=== PATIENT | male | born 1985 | race Caucasian/White ===

== ENCOUNTER 2017-04-08 12:24 | Emergency (ER) | payer MEDICAID, OTHER ==
[2017-04-08] MEDS ORDERED: Ketorolac 60 MG/2 ML SDV IM ONE (13:11)
--- NOTE | 2017-04-08 13:15 | EDM.PDOC ---
ED HPI GENERAL MEDICAL PROBLEM - General Chief Complaint: General Stated Complaint: BAD TOOTHACHE Time Seen by Provider: 04/08/17 12:56 Source of Information: Reports: Patient, RN Notes Reviewed History Limitations: Reports: No Limitations - History of Present Illness INITIAL COMMENTS - FREE TEXT/NARRATIVE: 32-year-old gentleman presents emergency department today with 2 complaints first is dental pain has been going on for the last couple days it is predominantly left side upper tooth he denies any fevers nausea vomiting, the other issue is bilateral testicular swelling and discomfort has been going on for about a week he has been initially evaluated in primary care recommended ultrasound for that he is not followed up tooth pain Pain Score (Numeric/FACES): 4 - Related Data Allergies Allergy/AdvReac Type Severity Reaction Status Date / Time No Known Allergies Allergy Verified 04/08/17 12:40 Home Meds: Home Meds Ibuprofen [Motrin] 1 tab PO Q8H PRN 04/08/17 [History] Levofloxacin [Levaquin] 1 tab PO DAILY 04/08/17 [History] Past Medical History Genitourinary History: Reports: Other (See Below) Other Genitourinary History: TESTICLE SWELLING BAG OF WORMS Musculoskeletal History: Reports: Fracture - Infectious Disease History Infectious Disease History: Reports: Chicken Pox - Past Surgical History Musculoskeletal Surgical History: Reports: Other (See Below) Other Musculoskeletal Surgeries/Procedures:: LEFT COLLAR BONE PLATE AND SCREWS Social & Family History - Tobacco Use Smoking Status *Q: Current Every Day Smoker Years of Tobacco use: 15 Packs/Tins Daily: 0.5 Second Hand Smoke Exposure: Yes - Caffeine Use Caffeine Use: Reports: Coffee - Recreational Drug Use Recreational Drug Use: No ED ROS GENERAL - Review of Systems Review Of Systems: See Below Constitutional: Reports: No Symptoms HEENT: Reports: Dental Pain Respiratory: Reports: No Symptoms Cardiovascular: Reports: No Symptoms GI/Abdominal: Reports: No Symptoms : Reports: Pain (Testicular) Skin: Reports: No Symptoms Neurological: Reports: No Symptoms ED EXAM, GENERAL - Physical Exam Exam: See Below Exam Limited By: No Limitations General Appearance: Alert, WD/WN, No Apparent Distress Nose: Normal Inspection, Normal Mucosa, No Blood Throat/Mouth: Normal Inspection, Normal Lips, Normal Gums, Normal Oropharynx, Normal Voice, No Airway Compromise, Other (Dental caries tooth #16) Head: Atraumatic, Normocephalic Neck: Normal Inspection, Supple, Non-Tender, Full Range of Motion Respiratory/Chest: No Respiratory Distress, Lungs Clear, Normal Breath Sounds, No Accessory Muscle Use, Chest Non-Tender Cardiovascular: Regular Rate, Rhythm, No Murmur GI/Abdominal: Soft, Non-Tender (Male) Exam: No Hernia, Normal Inspection, Circumcised, Testicular Tenderness (L), Testicular Tenderness (R). No: Suprapubic Fullness, Testicular Mass, Urethral Discharge Course - Vital Signs Last Recorded V/S: Last Vital Signs Temp 95.2 F L 04/08/17 12:50 Pulse 59 L 04/08/17 14:02 Resp 16 04/08/17 14:02 BP 132/80 04/08/17 14:02 Pulse Ox 96 04/08/17 14:02 - Orders/Labs/Meds Labs: Laboratory Tests 04/08/17 04/08/17 Range/Units 13:11 13:11 WBC 8.5 (4.5-11.0) K/uL RBC 4.81 (4.30-5.90) M/uL Hgb 15.1 H (12.0-15.0) g/dL Hct 43.6 (40.0-54.0) % MCV 91 (80-98) fL MCH 31 (27-31) pg MCHC 35 (32-36) % Plt Count 234 (150-400) K/uL Neut % (Auto) 64 (36-66) % Lymph % (Auto) 26 (24-44) % [place] % (Auto) 7 H (2-6) % Eos % (Auto) 2 (2-4) % Baso % (Auto) 1 (0-1) % Sodium 142 (140-148) mmol/L Potassium 4.3 (3.6-5.2) mmol/L Chloride 105 (100-108) mmol/L Carbon Dioxide 28 (21-32) mmol/L Anion Gap 9.1 (5.0-14.0) mmol/L BUN 17 (7-18) mg/dL Creatinine 1.1 (0.8-1.3) mg/dL Est Cr Clr Drug Dosing 100.78 mL/min Estimated GFR (MDRD) > 60 (>60) Glucose 96 (74-106) mg/dL Calcium 9.1 (8.5-10.1) mg/dL Meds: Medications Discontinued Medications Generic Name Dose Route Start Last Admin Trade Name Alexandra PRN Reason Stop Dose Admin Ketorolac Tromethamine 60 mg 04/08/17 13:11 04/08/17 13:23 Toradol IM 04/08/17 13:12 60 mg ONETIME ONE Administration Departure - Departure Time of Disposition: 14:56 Disposition: Home, Self-Care 01 Condition: Good Clinical Impression: Testicle pain - Discharge Information Referrals: Jasvir Wise Sr, MD [Primary Care Provider] - Forms: ED Department Discharge Additional Instructions: Use hydrocodone as needed for pain control, recommend follow-up ultrasound in 6 months, please report to the dental clinic at 8:15 on Tuesday for further evaluation, call return to the emergency department with worsening of symptoms - Assessment/Plan Plan: Assessment Acuity = acute Site and laterality = bilateral testicular pain, dental pain tooth #16 Etiology = unclear etiology for both Manifestations = none Location of injury = Home Lab values = CBC, BMP unremarkable ultrasound shows no acute process there is a small cyst in the left testicle of unclear etiology recommend follow-up ultrasound in 6 months Plan Dental referral was set up for Tuesday at 8:15, hydrocodone 5/325 one tablet by mouth 3 times a day when necessary total #10 provided for pain control, recommend follow-up with primary care for repeat ultrasound in 6 months Patient was in agreement with the plan all questions were answered, they were instructed to return to the emergency department or call for worsening symptoms. This note was dictated using [employer] voice recognition software please call with any questions.
--- NOTE | 2017-04-08 14:35 | US ---
Testicular ultrasound. Findings: Right testicle 4.1 x 2.1 x 2.8 cm. Normal echotexture. The right epididymis is within claudine l limits. Left testicle 4.5 x 2.4 x 2.4 cm. Probable tiny cleft within the left testicle as there is a tiny hypoechogenicity within it measuring only a few millimeters. Left epididymis contains a tiny c yst otherwise within normal limits. Impression: 1. No definitive abnormality there is likely a tiny cleft only within the left testicle but would rec ommend follow-up in 6 months with ultrasound for stability.
== END 2017-04-08 15:05 | disposition home or self-care (01) ==
LOC: JP.ED 12:24
DX: N50.812 Left testicular pain (principal); N50.811 Right testicular pain; K02.9 Dental caries, unspecified; F17.210 Nicotine dependence, cigarettes, uncomplicated; Z79.899 Other long term (current) drug therapy
CPT/HCPCS: 36415; 76870; 80048; 85025; 93976; 96372; 99284; J1885

== ENCOUNTER 2019-10-12 14:16 | Emergency (ER) | payer BC, MEDICAID ==
[2019-10-12] MEDS ORDERED: Lidocaine 1% with EPINEPHrine 1:100,000 50 ML MDV SUBCUT SCH (15:00)
[2019-10-12] MEDS ORDERED: Bacitracin Oint 1 GM U/D Packet TOP ONE (15:04)
[2019-10-12] MEDS ORDERED: Diphtheria,Pertussis(Acell),Tetanus Vaccine 0.5 ML SDV IM ONE (15:05)
--- NOTE | 2019-10-12 15:09 | EDM.PDOC ---
ED HPI GENERAL MEDICAL PROBLEM - General Chief Complaint: Laceration Stated Complaint: HOOK IN L INDEX FINGER Time Seen by Provider: 10/12/19 14:50 Source of Information: Reports: Patient, Old Records, RN History Limitations: Reports: No Limitations - History of Present Illness INITIAL COMMENTS - FREE TEXT/NARRATIVE: 34 yo male presents with a fishhook in his R index finger. Here for evaluation. Tetanus unknown. Onset: Today Onset Date: 10/12/19 Duration: Minutes: Location: Reports: Upper Extremity, Left Quality: Reports: Sharp, Stabbing Severity: Moderate Improves with: Reports: Rest Worsens with: Reports: Movement (of hook) Context: Reports: Trauma Associated Symptoms: Reports: No Other Symptoms Treatments EVALUATION ADVISOR: Reports: Other (see below) (none) Left Finger-Index Pain Score (Numeric/FACES): 4 - Related Data Allergies Allergy/AdvReac Type Severity Reaction Status Date / Time No Known Allergies Allergy Verified 10/12/19 14:36 Home Meds: Home Meds Buprenorphine HCl/Naloxone HCl [Suboxone 4 mg-1 mg Sl Film] 2 cap SL DAILY 10/11 [History] Methylphenidate HCl [Ritalin] 10 mg PO DAILY 10/12/19 [History] Past Medical History Genitourinary History: Reports: Other (See Below) Other Genitourinary History: TESTICLE SWELLING BAG OF WORMS Musculoskeletal History: Reports: Fracture Psychiatric History: Reports: ADD, Learning Disability - Infectious Disease History Infectious Disease History: Reports: Chicken Pox - Past Surgical History Musculoskeletal Surgical History: Reports: Other (See Below) Other Musculoskeletal Surgeries/Procedures:: LEFT COLLAR BONE PLATE AND SCREWS Social & Family History - Tobacco Use Smoking Status *Q: Current Every Day Smoker Years of Tobacco use: 18 Packs/Tins Daily: 0.2 - Caffeine Use Caffeine Use: Reports: Coffee - Recreational Drug Use Recreational Drug Use: No ED ROS GENERAL - Review of Systems Review Of Systems: See Below Constitutional: Reports: No Symptoms Skin: Reports: Wound (puncture of L index finger) Neurological: Reports: No Symptoms ED EXAM, SKIN/RASH Exam: See Below Exam Limited By: No Limitations General Appearance: Alert, WD/WN, No Apparent Distress Extremities: No: Normal Inspection, Normal Range of Motion, Non-Tender, No Pedal Edema, Pedal Edema, Increased Warmth, Redness, Other (hook in L index finger) Neurological: Alert, Oriented, CN II-XII Intact, Normal Cognition, No Motor/ Sensory Deficits Psychiatric: Normal Affect, Normal Mood Skin: Warm, Dry, Normal Color, No Rash, Wound/Incision (puncture L index) Location, Skin: Upper Extremity, Left Associated features: Tenderness. No: Warmth, Induration, Lymphangitis ED SKIN PROCEDURES - Foreign Body Removal Performing Doctor:: Milan José Anesthesia Type: Local (1% lido with epi 2.5 ml locally) Complications:: No Comments:: Hook removed after katrina was covered with an 18 g needle and backed out. Course - Vital Signs Last Recorded V/S: Last Vital Signs Temp 35.3 C L 10/12/19 14:42 Pulse 63 10/12/19 14:42 Resp 16 10/12/19 14:42 BP 120/79 10/12/19 14:42 Pulse Ox 100 10/12/19 14:42 - Orders/Labs/Meds Orders: Active Orders 24 hr Category Date Time Status Bacitracin [Bacitracin Oint 1 GM] Med 10/12/19 15:04 Once 1 dose TOP ONETIME ONE Lidocaine 1% w/EPINEPHrine [Xylocaine 1% with Med 10/12/19 15:00 Ordered EPINEPHrine 1:100,000] 3 ml SUBCUT STAT Medication Orders Lidocaine/Epinephrine (Xylocaine 1% With Epinephrine 1:100,000) 3 ml SUBCUT STAT LANCE Meds: Medications Generic Name Dose Route Start Last Admin Trade Name Freq PRN Reason Stop Dose Admin Lidocaine/Epinephrine 3 ml 10/12/19 15:00 Xylocaine 1% With Epinephrine 1:100,000 SUBCUT STAT LANCE Departure - Departure Time of Disposition: 15:10 Disposition: Home, Self-Care 01 Condition: Good Clinical Impression: Fish hook injury of finger of left hand Qualifiers: Encounter type: initial encounter Qualified Code(s): S69.92XA - Unspecified injury of left wrist, hand and finger(s), initial encounter - Discharge Information *PRESCRIPTION DRUG MONITORING PROGRAM REVIEWED*: No *COPY OF PRESCRIPTION DRUG MONITORING REPORT IN PATIENT YANIRA: No Instructions: Puncture Wound, [id number] Referrals: PCP,None [Primary Care Provider] - Additional Instructions: Clean wound twice daily with soap and water. Dry. Apply antibiotic ointment and a new dressing. Recheck for signs of infection. Acetaminophen for pain relief. Sepsis Event Note - Evaluation Sepsis Screening Result: No Definite Risk - Focused Exam Vital Signs: Vital Signs Temp Pulse Resp BP Pulse Ox 10/12/19 14:42 35.3 C L 63 16 120/79 100 10/12/19 14:37 35.3 C L 63 16 120/79 100 Date Exam was Performed: 10/12/19 Time Exam was Performed: 15:04 - My Orders Last 24 Hours: My Active Orders 10/12/19 15:00 Lidocaine 1% w/EPINEPHrine [Xylocaine 1% with EPINEPHrine 1:100,000] 3 ml SUBCUT STAT 10/12/19 15:04 Bacitracin [Bacitracin Oint 1 GM] 1 dose TOP ONETIME ONE - Assessment/Plan Last 24 Hours: My Active Orders 10/12/19 15:00 Lidocaine 1% w/EPINEPHrine [Xylocaine 1% with EPINEPHrine 1:100,000] 3 ml SUBCUT STAT 10/12/19 15:04 Bacitracin [Bacitracin Oint 1 GM] 1 dose TOP ONETIME ONE
== END 2019-10-12 15:20 | disposition home or self-care (01) ==
LOC: JP.ED 14:16
DX: S60.450A Superficial foreign body of right index finger, initial encounter (principal); Z23 Encounter for immunization; F17.210 Nicotine dependence, cigarettes, uncomplicated; Z79.899 Other long term (current) drug therapy
CPT/HCPCS: 64450; 90471; 90715; 99283-25

== ENCOUNTER 2021-02-08 12:31 | Emergency (ER) | payer BC ==
--- NOTE | 2021-02-08 13:21 | EDM.PDOC ---
ED HPI GENERAL MEDICAL PROBLEM - General Chief Complaint: Abdominal Pain Stated Complaint: SWOLLEN GROIN Time Seen by Provider: 02/08/21 13:00 Source of Information: Reports: Patient History Limitations: Reports: No Limitations - History of Present Illness INITIAL COMMENTS - FREE TEXT/NARRATIVE: 35-year-old male with groin adenopathy that he has noticed for the past several weeks. He was checked at the clinic, a fairly thorough work-up was done and the only thing that was abnormal was his pH of his urine was high. He has a CT of the abdomen and pelvis planned through the clinic coming up but he does not know when. Over the past day or 2 has been continually feeling his lymph nodes and is so worried that he came in today to be checked. He really has no pain, no fever, he has had a 10 pound weight loss over the past year but no nausea or vomiting, bowel changes, rashes or testicular problems. Onset: Gradual Duration: Week(s): (He has noticed the lymph nodes for the past few weeks) Location: Reports: Other (Bilateral groin) Associated Symptoms: Reports: Other (Significant anxiety about health) - Related Data Allergies Allergy/AdvReac Type Severity Reaction Status Date / Time No Known Allergies Allergy Verified 02/08/21 12:49 Home Meds: Home Meds Buprenorphine HCl/Naloxone HCl [Suboxone 4 mg-1 mg Sl Film] 2 cap SL DAILY 10/12/19 [History] Methylphenidate HCl [Ritalin] 10 mg PO DAILY 10/12/19 [History] Ibuprofen 1 tab PO BID 02/08/21 [History] Nicotine Polacrilex [Nicotine Gum] 2 tab CHEW Q4HR 02/08/21 [History] Past Medical History Genitourinary History: Reports: Other (See Below) Other Genitourinary History: TESTICLE SWELLING BAG OF WORMS Musculoskeletal History: Reports: Fracture Psychiatric History: Reports: ADD, Learning Disability - Infectious Disease History Infectious Disease History: Reports: Chicken Pox - Past Surgical History Musculoskeletal Surgical History: Reports: Other (See Below) Other Musculoskeletal Surgeries/Procedures:: LEFT COLLAR BONE PLATE AND SCREWS Social & Family History - Tobacco Use Tobacco Use Status *Q: Former Tobacco User Used Tobacco, but Quit: Yes Month/Year Tobacco Last Used: 2020 - Caffeine Use Caffeine Use: Reports: Coffee ED ROS GENERAL - Review of Systems Review Of Systems: See Below Constitutional: Denies: Fever, Chills, Malaise HEENT: Reports: No Symptoms Respiratory: Reports: No Symptoms Cardiovascular: Reports: No Symptoms GI/Abdominal: Reports: No Symptoms Musculoskeletal: Reports: No Symptoms Skin: Reports: No Symptoms. Denies: Rash Neurological: Reports: No Symptoms Psychiatric: Reports: Anxiety Hematologic/Lymphatic: Reports: Other (Palpable lymph nodes in both groins) ED EXAM, GENERAL - Physical Exam Exam: See Below Exam Limited By: No Limitations General Appearance: Alert, Anxious Eye Exam: Bilateral Eye: Normal Inspection Head: Atraumatic Neck: No: Lymphadenopathy (R), Lymphadenopathy (L) Respiratory/Chest: No Respiratory Distress GI/Abdominal: Soft, Non-Tender (Male) Exam: No Hernia, Other (The inguinal lymphatic chains are palpable but small, freely mobile and nontender). No: Suprapubic Fullness, Testicular Mass, Testicular Tenderness (L), Testicular Tenderness (R) Extremities: Normal Inspection Neurological: Alert, Oriented Psychiatric: Anxious Skin Exam: Warm, Dry Course - Vital Signs Last Recorded V/S: Last Vital Signs Temp 97.5 F 02/08/21 12:58 Pulse 94 02/08/21 12:58 Resp 14 02/08/21 12:58 BP 125/73 02/08/21 12:58 Pulse Ox 98 02/08/21 12:58 - Re-Assessments/Exams Free Text/Narrative Re-Assessment/Exam: 02/08/21 13:50 Reviewed the labs with the patient, his CBC and differential were normal. I really do not think the lymph nodes are significantly enlarged considering that he has been palpating them continually for 2 straight weeks. No need to do the CAT scan today, he can return anytime if worsening such as pain or more swelling. Departure - Departure Time of Disposition: 13:40 Disposition: Home, Self-Care 01 Clinical Impression: Lymphadenopathy, inguinal - Discharge Information Instructions: Lymphadenopathy Referrals: Truman Yoder NP [Primary Care Provider] - Forms: ED Department Discharge Care Plan Goals: Recheck with your scan as planned, return tomorrow if worsening or concerns. Sepsis Event Note (ED) - Focused Exam Vital Signs: Vital Signs Temp Pulse Resp BP Pulse Ox 02/08/21 12:58 97.5 F 94 14 125/73 98
== END 2021-02-08 13:40 | disposition home or self-care (01) ==
LOC: JP.ED 12:31
DX: R59.0 Localized enlarged lymph nodes (principal); Z87.891 Personal history of nicotine dependence
CPT/HCPCS: 99283

== ENCOUNTER 2022-10-10 11:01 | Emergency (ER) | payer BC ==
[2022-10-10 12:25] LABS: APPEARANCE,URINE SLIGHTLY CLOUDY (CLEAR); BILIRUBIN,URINE NEGATIVE (NEGATIVE); COLOR,URINE YELLOW (YELLOW); GLUCOSE,URINE NEGATIVE (NEGATIVE); KETONES,URINE NEGATIVE (NEGATIVE); LEUKOCYTE ESTERASE,URINE NEGATIVE (NEGATIVE); NITRITE,URINE NEGATIVE (NEGATIVE); OCCULT BLOOD,URINE TRACE-INTACT (NEGATIVE); PROTEIN,URINE TRACE mg/dL (NEGATIVE)
[2022-10-10 12:31] LABS: AMORPHOUS SEDIMENT,URINE NOT SEEN; BACTERIA,URINE NOT SEEN; EPITHELIAL CELLS,URINE FEW; MUCUS,URINE FEW; RBC,URINE 0-5 (0-5); WBC,URINE 0-5 (0-5)
[2022-10-13 12:09] LABS: CHLAMYDIA TRACHOMATIS, NAA Negative (Negative); NEISSERIA GONORRHOEAE, NAA Negative (Negative)
== END 2022-10-10 13:19 | disposition home or self-care (01) ==
LOC: JP.ED 11:01
DX: N41.9 Inflammatory disease of prostate, unspecified (principal); A74.9 Chlamydial infection, unspecified; Z87.891 Personal history of nicotine dependence
CPT/HCPCS: 81001; 87491; 87591; 99284

== ENCOUNTER 2023-12-26 22:30 | Emergency (ER) | payer OTHER, BC ==
[2023-12-26] MEDS: Cyclobenzaprine 10 MG Tab PO ONE (23:00)
[2023-12-26] MEDS: LORazepam 1 MG Tab PO ONE (23:00)
[2023-12-26] MEDS: traMADol 50 MG Tab PO ONE (23:16)
[2023-12-26] MEDS: Ketorolac 30 MG/ML SDV IM ONE (23:36)
[2023-12-27] MEDS: HYDROmorphone 1 MG/ML Syringe IM ONE (00:08)
== END 2023-12-27 00:22 | disposition home or self-care (01) ==
LOC: JP.ED 22:30
DX: S46.011A Strain of muscle(s) and tendon(s) of the rotator cuff of right shoulder, initial encounter (principal); Z79.899 Other long term (current) drug therapy; X58.XXXA Exposure to other specified factors, initial encounter
CPT/HCPCS: 73030; 96372; 99283; 99284; A9270; J1170

== ENCOUNTER 2023-12-27 21:39 | Emergency (ER) | payer BC ==
[2023-12-27] MEDS: Ketorolac 30 MG/ML SDV IM ONE (22:25)
[2023-12-27] MEDS: HYDROmorphone 1 MG/ML Syringe IM ONE (22:44)
== END 2023-12-27 22:55 | disposition home or self-care (01) ==
LOC: JP.ED 21:39
DX: S46.011A Strain of muscle(s) and tendon(s) of the rotator cuff of right shoulder, initial encounter (principal); Z87.891 Personal history of nicotine dependence; Z86.16 Personal history of COVID-19; Z79.1 Long term (current) use of non-steroidal anti-inflammatories (NSAID); Z79.899 Other long term (current) drug therapy; X58.XXXA Exposure to other specified factors, initial encounter
CPT/HCPCS: 96372; 99283; J1170; J1885

== ENCOUNTER 2024-01-04 08:19 | Day surgery (SDC) | payer OTHER, BC ==
[2024-01-04] MEDS ORDERED: fentaNYL 100 MCG/2 ML SDV ONE (08:26)
[2024-01-04] MEDS ORDERED: Propofol 200 MG/20 ML SDV ONE ×3 (08:26→13:46)
[2024-01-04] MEDS ORDERED: Midazolam 1 MG/ML 2 ML SDV ONE ×2 (08:26→12:52)
[2024-01-04] MEDS: Lactated Ringers 1,000 ML IV SCH (08:37)
[2024-01-04 08:50] LABS: HEMOGLOBIN 11.9 g/dL (12.9-16.9); MEAN CORPUSCULAR HEMOGLOBIN 30.4 pg (31.6-35.5); MEAN CORPUSCULAR VOLUME 86.7 fL (81.4-99.0); RED BLOOD CELL COUNT 3.92 M/uL (4.14-5.76); WHITE BLOOD CELL COUNT,WBC 4.3 K/uL (3.2-11.0)
[2024-01-04 09:12] LABS: A/G RATIO 1.1 (1.2-2.2); ALANINE AMINOTRANSFERASE,ALT 54 U/L (12-78); ALBUMIN 3.4 g/dL (3.4-5.0); ALKALINE PHOSPHATASE 63 U/L (46-116); ANION GAP 11.8 mmol/L (5.0-14.0); ASPARTATE AMNIOTRANSFERASE,AST 32 U/L (15-37); BILIRUBIN TOTAL 0.2 mg/dL (0.2-1.0); BLOOD UREA NITROGEN,BUN 19 mg/dL (7-18); CALCIUM 8.3 mg/dL (8.5-10.1); CARBON DIOXIDE,CO2 28 mmol/L (21-32); CHLORIDE,CL 101 mmol/L (100-108); CREATININE 0.9 mg/dL (0.8-1.3); ESTIMATED GFR 111 mL/min (>60); GLUCOSE RANDOM 88 mg/dL (74-106); POTASSIUM,K 3.9 mmol/L (3.6-5.2); PROTEIN TOTAL,TP 6.6 g/dL (6.4-8.2); SODIUM,NA 141 mmol/L (140-148)
[2024-01-04] MEDS: Nozin Nasal Sanitizer NASBOTH ONE (09:35)
[2024-01-04] MEDS ORDERED: Bupivacaine 0.5% 30 ML SDV ONE (12:37)
[2024-01-04] MEDS: ceFAZolin 2 GM in Premix Bag 1 BAG IV ONE (13:17)
[2024-01-04] MEDS: Bupivacaine 0.5% 30 ML SDV ONE (13:30)
[2024-01-04] MEDS: oxyCODONE 5 MG Tab PO ONE (15:03)
== END 2024-01-04 16:08 | disposition home or self-care (01) ==
LOC: JP.SDS 08:19
PROVIDERS: ATTEND Specialist
DX: M75.121 Complete rotator cuff tear or rupture of right shoulder, not specified as traumatic (principal)
CPT/HCPCS: 01630; 29827; 36415; 80053; 85027; 93005; 93010; A9270; C1713; J0665; J0690; J2250; J2704; J3010; J7120

== ENCOUNTER 2024-05-22 12:50 | Emergency (ER) | payer BC, OTHER | END 2024-05-22 14:00 | disposition home or self-care (01) | LOC: JP.ED 12:50 | DX: K08.89 Other specified disorders of teeth and supporting structures (principal); Z86.16 Personal history of COVID-19; Z87.891 Personal history of nicotine dependence | CPT/HCPCS: 99283 ==

== ENCOUNTER 2024-10-17 09:58 | Day surgery (SDC) | payer OTHER, BC ==
[~2024-10-17 09:58] MED LIST: Bupivacaine 0.5% 30 ML SDV ONE; Dexamethasone 4 MG/ML SDV ONE; Midazolam 1 MG/ML 2 ML SDV ONE; Ondansetron 4 MG/2 ML SDV ONE; Propofol 200 MG/20 ML SDV ONE; fentaNYL 100 MCG/2 ML SDV ONE
[2024-10-17] MEDS ORDERED: Bupivacaine 0.5% 30 ML SDV ONE (10:27)
[2024-10-17] MEDS: Lactated Ringers 1,000 ML IV SCH (10:54)
[2024-10-17 10:58] LABS: ANION GAP 6.9 mmol/L (5.0-14.0); CALCIUM 8.7 mg/dL (8.5-10.1); CREATININE 0.9 mg/dL (0.8-1.3); EST CRCL DRUG DOSING (CG) 112.26 mL/min; POTASSIUM,K 3.7 mmol/L (3.6-5.2)
[2024-10-17] MEDS: Nozin Nasal Sanitizer NASBOTH ONE (11:01)
[2024-10-17] MEDS: ceFAZolin 1 GM in Premix Bag 1 BAG IV ONE (11:40)
[2024-10-17] MEDS ORDERED: fentaNYL 250 MCG/5 ML SDV ONE (12:01)
[2024-10-17] MEDS ORDERED: Propofol 200 MG/20 ML SDV ONE (12:12)
== END 2024-10-17 15:10 | disposition home or self-care (01) ==
LOC: JP.SDS 09:58
PROVIDERS: ATTEND Specialist
DX: S43.401A Unspecified sprain of right shoulder joint, initial encounter (principal); M25.811 Other specified joint disorders, right shoulder; F41.9 Anxiety disorder, unspecified; F17.200 Nicotine dependence, unspecified, uncomplicated
CPT/HCPCS: 01630; 29822; 36415; 80048; A9270; J0665; J0689; J1100; J2250; J2405; J2704; J3010; J7120